=== PATIENT | female | born 1990 | race American Indian/Alaskan Native ===

== ENCOUNTER 2017-05-10 11:26 | Emergency (ER) | payer SELFPAY ==
[2017-05-10 11:38] VITALS: BP 118/81
[2017-05-10 12:13] LABS: Basophils % (Auto) 0.9 % (0.0-1.8); Eosinophils % (Auto) 0.6 % (0.0-4.3); Hematocrit 37.2 % (30.3-42.9); Hemoglobin 12.6 gm/dl (10.1-14.3); Mean Corpuscular HGB Conc 34 % (30-34); Mean Corpuscular Hemoglobin 32 pg (28-32); Mean Corpuscular Volume 93 fl (79-97); Platelet Count 265 K/mm3 (140-440); Red Blood Count 3.99 M/mm3 (3.65-5.03); Red Cell Distribution Width 12.8 % (13.2-15.2); White Blood Count 6.4 K/mm3 (4.5-11.0)
[2017-05-10 12:27] LABS: Anion Gap 18 mmol/L; BUN/Creatinine Ratio 13; Blood Urea Nitrogen 8 mg/dL (7-17); Calcium 9.8 mg/dL (8.4-10.2); Carbon Dioxide 24 mmol/L (22-30); Glucose 88 mg/dL (65-100); Potassium 4.6 mmol/L (3.6-5.0); Sodium 138 mmol/L (137-145)
== END 2017-05-10 21:03 | disposition left against medical advice (07) ==
LOC: ED 11:26
DX: R07.9 Chest pain, unspecified (principal); Z53.21 Procedure and treatment not carried out due to patient leaving prior to being seen by health care provider
CPT/HCPCS: 36415; 80048; 84484; 84703; 85025; 93005; 93010